=== PATIENT | male | born 1995 | race Caucasian/White ===

== ENCOUNTER 2018-11-29 09:27 | Emergency (ER) | payer OTHER ==
[~2018-11-29] VITALS: Ht 175.3 cm; Wt 91.0 kg
[2018-11-29] MEDS ORDERED: LIDOCAINE 1%-EPI 1:100K, 20ML SQ ONE (10:30)
[2018-11-29] MEDS ORDERED: IBUPROFEN 200 MG TABLET PO ONE (10:30)
[2018-11-29] MEDS ORDERED: HYDROcodone/APAP 5/325 TABLET PO ONE (10:30)
[2018-11-29] MEDS ORDERED: DIPH,PERTUSS(ACELL),TET VAC/PF 0.5 ML IM-VACC ONE ×2 (10:30→10:36)
[2018-11-29] MEDS ORDERED: HYDROcodone/APAP 5/325 TABLET ONE (10:35)
[2018-11-29] MEDS ORDERED: IBUPROFEN 200 MG TABLET ONE (10:42)
[2018-11-29] MEDS ORDERED: LIDOCAINE-MPF 1%, 5ML ONE (10:49)
[2018-11-29 11:01] VITALS: BP 116/80
--- NOTE | 2018-11-29 11:01 | NUR ---
pt laying on gurney awake & comfortable,responds apporp to staff, NAD at rest, cmfort measures provided, friend at BS, call light within reach.
--- NOTE | 2018-11-29 11:45 | NUR ---
Patient given wound care/discharge instructions and Rx, they have confirmed that they understand the instructions. Patient ambulatory with steady gait.
== END 2018-11-29 11:47 | disposition home or self-care (01) ==
LOC: EDBD 09:27 → ED 10:20
DX: L02.31 Cutaneous abscess of buttock (principal)
CPT/HCPCS: 10060; 90471; 90715; 99283; J3490

== ENCOUNTER 2018-12-01 11:21 | Emergency (ER) | payer OTHER ==
[~2018-12-01] VITALS: Ht 175.3 cm; Wt 89.3 kg
[2018-12-01 11:32] VITALS: BP 129/76
== END 2018-12-01 12:26 | disposition home or self-care (01) ==
LOC: ED 12:20
DX: L02.31 Cutaneous abscess of buttock (principal)
CPT/HCPCS: 99283